=== PATIENT | male | born 1965 | race Caucasian/White ===

== ENCOUNTER 2017-08-31 14:28 | Outpatient (CLI) | payer OTHER ==
--- NOTE | 2017-08-31 15:40 | MRI ---
LUMBAR SPINE MRI NONCONTRAST: COMPARISON: 04/23/12. INDICATION: Lumbar radiculopathy. FINDINGS: Multilevel degenerative signal alteration is present which is most pronounced at L4-5, compatible wit h Modic type II degenerative signal alteration. Conus medullaris terminates at the L2 level. L5-S1: There is a broad-based left asymmetric disk-osteophyte complex with mild effacement of the ve ntral thecal sac. There is moderate left foraminal stenosis. No high-grade right foraminal compromi se. Mild bilateral degenerative facet hypertrophy is seen. L4-5: There is mild central canal stenosis as a result of broad-based disk-osteophyte complex. Ther e is mild to moderate bilateral neural foraminal stenosis. L3-4: Mild narrowing of the central canal as a result of broad-based disk-osteophyte complex. No hi gh-grade foraminal stenosis. L2-3: Mild narrowing of the central canal as a result of concentric disk bulge. No obvious foramina l stenosis. L1-2: Mild effacement of the ventral thecal sac by disk-osteophyte. No significant foraminal stenos is. IMPRESSION: 1. Multilevel degenerative change of the lumbar spine, as outlined above. 2. There are multilevel areas of signal alteration compatible with Modic type II signal alteration. POS: JENNIFER
== END 2017-08-31 14:29 | disposition home or self-care (01) ==
LOC: TBSIIMAG 14:28
PROVIDERS: ATTEND Nurse Practitioner Family
DX: M47.26 Other spondylosis with radiculopathy, lumbar region (principal)
CPT/HCPCS: 72148

== ENCOUNTER 2017-12-20 14:36 | Outpatient (CLI) | payer OTHER ==
--- NOTE | 2017-12-20 15:21 | RAD ---
CERVICAL SPINE SERIES 5 VIEWS INCLUDING FLEXION AND EXTENSION: Date: 12/20/17 HISTORY: Neck pain. FINDINGS: The vertebral bodies are normal in height. There are degenerative osteophytes present. There is minim al disc narrowing at C4-5 and C5-6 levels. Facets are in normal alignment. No abnormal motion is seen in flexion or extension. IMPRESSION: Arthritic change of the spine. POS: JENNIFER
--- NOTE | 2017-12-20 15:21 | RAD ---
LUMBAR SPINE SERIES 4 VIEWS INCLUDING FLEXION AND EXTENSION: HISTORY: Back pain with pain radiating down left leg. FINDINGS: The vertebral bodies are normal in height. There are degenerative osteophytes along the course of th e spine. Disk narrowing is most pronounced at L4-5. Degenerative facet changes are noted. Pedicles are intact. IMPRESSION: Moderate arthritic change of the spine. No evidence of any spondylolisthesis. POS: JENNIFER
--- NOTE | 2017-12-20 16:00 | MRI ---
MRI OF THE CERVICAL SPINE WITHOUT CONTRAST: INDICATION: History of upper back pain between the shoulder blades. COMPARISON: Cervical spine radiographs dated 12/20/17. FINDINGS: The visualized aspects of the posterior fossa appear within normal limits. At the C2-C3 level, there is moderate left and mild right facet joint degenerative change. There is uncovertebral hypertrophy . There is mild narrowing of the left neural foramen without definite impingement. At C3-4, there is mild to moderate facet joint degenerative change. There is mild uncovertebral hype rtrophy greater on the left causing mild left neural foraminal narrowing. At C4-5, there is a broad-based disk bulge inducing mild effacement of the ventral subarachnoid space . There is uncovertebral hypertrophy and facet joint degenerative change inducing moderate left and mild to moderate right neural foraminal narrowing. At C5-6, there is an asymmetric to the right disk bulge with uncovertebral hypertrophy and facet join t degenerative change inducing severe right neural foraminal narrowing and mild to moderate left neur al foraminal narrowing. There is a broad-based disk bulge at this level that induces mild central ca nal narrowing. At C6-7, there is uncovertebral hypertrophy and a b disk bulge inducing mild bilateral neural foramin al narrowing. At C7-T1, there is no appreciable central canal or neural foraminal narrowing. IMPRESSION: 1. Mild central canal narrowing at C5-6 with severe right and mild to modera left neural foraminal n arrowing due to an asymmetric to the right disk bulge, uncovertebral hypertrophy, and facet joint deg enerative change. 2. Mild central canal narrowing at C4-5 with uncovertebral hypertrophy and facet joint degenerative change inducing moderate left and mild to moderate right neural foraminal narrowing. POS: JENNIFER
--- NOTE | 2017-12-20 16:42 | MRI ---
MRI THORACIC SPINE WITHOUT CONTRAST: 12/20/17 HISTORY: M54.6 - back pain, thoracic. COMPARISON: None. FINDINGS: The contour of the aorta is normal. No hydronephrosis. The paraspinal musculature is normal. There are type II Modic changes of the anterior, superior and anterior inferior end plates throughout the thoracic spine. There is a focal area of degenerative disc space height loss at T8-T9 with right lateral recess and s ubforaminal posterior disc protrusion effacing the ventral CSF space. There is a central syrinx cente red at the T8-T9 level for a craniocaudad length of 5 cm with maximum AP dimension of 3 mm. No significant neural foraminal narrowing throughout the thoracic spine. IMPRESSION: 1. Central syrinx of the thoracic cord centered at the level of the T8-T9 disc measuring in the AP dimension of up to 3 mm and craniocaudad length of up to 5 cm. Brain MRI may be beneficial in this patient. 2. Focal single area of degenerative disc space disease with right paracentral, lateral recess, and subforaminal posterior disc osteophyte complex causing some mild effacement of the ventral CSF sp hamida. 3. Multilevel Modic type II end plate changes throughout the spine. POS: OSEI
== END 2017-12-20 14:37 | disposition home or self-care (01) ==
LOC: TBSIIMAG 14:36
PROVIDERS: ATTEND Physician Assistant Surgical
DX: M46.92 Unspecified inflammatory spondylopathy, cervical region (principal); M51.34 Other intervertebral disc degeneration, thoracic region; M47.892 Other spondylosis, cervical region; M48.061 Spinal stenosis, lumbar region without neurogenic claudication; M46.96 Unspecified inflammatory spondylopathy, lumbar region; M54.16 Radiculopathy, lumbar region; M99.81 Other biomechanical lesions of cervical region; M25.78 Osteophyte, vertebrae
CPT/HCPCS: 72050; 72110; 72141; 72146

== ENCOUNTER 2018-03-19 07:48 | Day surgery (SDC) | payer OTHER ==
[2018-03-19] MEDS ORDERED: Clindamycin/D5W 900 mg/50 ml Premix Bag ONE (08:12)
[2018-03-19] MEDS ORDERED: Levofloxacin 500 mg/D5W 100 ml Premix Bag ONE (08:13)
[2018-03-19] MEDS ORDERED: Gelfilm 1 EA Packet ONE (09:22)
[2018-03-19] MEDS ORDERED: Thrombin 5000 UNITS/5 ML VIAL ONE (09:23)
[2018-03-19] MEDS ORDERED: Bacitracin Zinc Ointment 30 gm TUBE ONE (09:23)
[2018-03-19] MEDS ORDERED: Midazolam HCl 2 mg/2 ml Vial ONE (09:41)
[2018-03-19] MEDS ORDERED: Fentanyl 100 MCG/2 ML VIAL ONE ×4 (09:41→12:53)
[2018-03-19] MEDS ORDERED: Sodium Chloride 0.9% 10 ML ONE (10:30)
[2018-03-19] MEDS ORDERED: Promethazine HCl 25 MG/ML VIAL SLOW IVP PRN (11:17)
[2018-03-19] MEDS ORDERED: Promethazine HCl 25 MG/ML VIAL IM PRN ×2 (11:17→12:21)
[2018-03-19] MEDS ORDERED: Ondansetron HCl/PF 4 MG/2 ML Vial IVP PRN (11:17)
[2018-03-19] MEDS ORDERED: Milk Of Magnesia 30 ML UDCUP PO PRN (12:21)
[2018-03-19] MEDS ORDERED: tiZANidine HCl 4 MG TAB PO PRN (12:21)
[2018-03-19] MEDS ORDERED: traMADol HCl 50 MG TAB PO PRN (12:21)
[2018-03-19] MEDS ORDERED: Fleet Enema 133 ML BOT PR PRN (12:21)
[2018-03-19] MEDS ORDERED: Acetaminophen/Codeine 30-300mg Tablet PO PRN (12:21)
[2018-03-19] MEDS ORDERED: Bisacodyl 10 MG SUPP PR PRN (12:21)
[2018-03-19] MEDS ORDERED: Acetaminophen 325 MG TAB PO PRN (12:21)
[2018-03-19] MEDS ORDERED: Mag-Al 1200 mg/1200 mg/30 ML UDCUP PO PRN (12:21)
[2018-03-19] MEDS ORDERED: Ketorolac Tromethamine 30 MG/ML VIAL ONE (12:31)
--- NOTE | 2018-03-19 12:52 | OP ---
OR: 9. WOUND TYPE: Type 1 wound. SURGEON: Jeff Rodas M.D. [employer] ARCHITECT: Oracio Gomez PA-C. PREPROCEDURE DIAGNOSES: Low back and left greater than right lower extremity pain with L4-L5 stenosi s and left L5 foraminal stenosis with lateral disk extrusion. PROCEDURES: 1. L4-L5 laminectomy, partial facetectomy, foraminotomies over the L4-L5 nerve roots. 2. Left L5-S1 transfacet approach for decompression of the exiting left L5 nerve root and removal of lateral and far lateral disk. 3. Use of operative microscope for microdissection. DESCRIPTION OF PROCEDURE: After informed consent was obtained from the patient, the patient brought to OR 9. Proper patient pause and identification was carried out. He was placed in excellent genera l endotracheal anesthesia and positioned prone on the OR table. All appropriate points were padded. We identified the L4-L5 and L5-S1 segments. This region was sterilely cleansed, prepared, and drape d. Proper patient pause and identification was carried out. The wound was then opened with a combin ation of sharp, monopolar, and blunt dissection. We exposed the L4-L5 segments bilaterally and the l eft L5-S1 segment, even out into the facet complex to facilitate the left L5-S1 transfacet approach. We then performed localization film, confirmed our area of interest and performed an L4-L5 laminecto my, partial facetectomy and foraminotomies. We then brought the microscope in and working across the left L5-S1 facet. We did a transfacet approach for lateral foraminal and far lateral disk removal f or maximal decompression throughout the course of the left L5 nerve root. We identified disk materia l. This was removed. There was also osteophytic spurring laterally in the foramen, and we removed t his as well. We assured freedom throughout the course of the left L5 nerve root, as it exited extra foraminally. Copious irrigation occurred throughout. Hemostasis was maximized throughout. The woun d was then closed in anatomic layers following the sprinkling of vancomycin powder and irrigation. T he patient then emerged from anesthesia.
[2018-03-19 13:00] VITALS: BMI 27.1
[2018-03-19] MEDS: HYDROcodone/Acetaminophen 7.5/325 mg Tablet PO PRN ×2 (14:19→20:11)
[2018-03-19] MEDS: Clindamycin/D5W 900 MG in Premix Bag 1 BAG IVPB SCH ×2 (14:20→21:44)
[2018-03-19] MEDS: Sodium Chloride 0.9% 1,000 ML IV SCH ×2 (17:37→23:32)
[2018-03-19] MEDS ORDERED: Temazepam 15 MG CAP PO SCH (21:00)
[2018-03-20] MEDS: HYDROcodone/Acetaminophen 7.5/325 mg Tablet PO PRN ×3 (01:46→09:50)
[2018-03-20 07:46] VITALS: BP 104/69; TEMP 98
--- NOTE | 2018-03-20 14:00 | DIS ---
DATE OF ADMISSION: 03/19/2018 DATE OF DISCHARGE: 03/20/2018 DISCHARGE DIAGNOSES: 1. Lumbar radiculopathy. 2. Lumbar spinal stenosis. 3. Rheumatoid arthritis. HOSPITAL COURSE: On 03/19/2018 Mr. Sorensen was admitted to undergo L4-L5 laminectomy with left L5-S1 d iskectomy. The patient's surgery was without complication and he recovered for 1 overnight stay on [facility] surgical [facility]. At the time of discharge, he had complete resolution of his bilateral lower extrem ity symptoms, but did have some incisional back pain. He has good strength in the bilateral lower ex tremities. He met criteria for discharge. Appropriate patient education and outpatient followups we re provided. We did let him know that he should hold on his RA medications, hopefully for the next 6 weeks, but definitely until his next wound check Both he and his family stated their understandin g and understood to call the office with questions or concerns prior to his next followup appointment . Again, at the time of discharge, the patient and his family were pleased with his outcome.
== END 2018-03-20 10:25 | disposition home or self-care (01) ==
LOC: SDC 07:48 → SURG B 12:58 → SDC 03-20 10:25
PROVIDERS: ATTEND Surgery
PROC: 01NB0ZZ Release Lumbar Nerve, Open Approach (ICD-10-PCS; principal; 2018-03-20)
PROC: 0ST40ZZ Resection of Lumbosacral Disc, Open Approach (ICD-10-PCS; principal; 2018-03-20)
DX: M48.061 Spinal stenosis, lumbar region without neurogenic claudication (principal); M51.16 Intervertebral disc disorders with radiculopathy, lumbar region; M06.9 Rheumatoid arthritis, unspecified; Z79.899 Other long term (current) drug therapy; Z88.0 Allergy status to penicillin
CPT/HCPCS: 76001; 96374; 96375; 96376; A4216; J1885; J1956; J2250; J3010; J3370; J3490

== ENCOUNTER 2021-06-29 09:23 | Outpatient (CLI) | payer OTHER | END 2021-06-29 09:24 | disposition home or self-care (01) | LOC: MRI 09:23 | PROVIDERS: ATTEND Surgery | DX: M47.26 Other spondylosis with radiculopathy, lumbar region (principal); M54.30 Sciatica, unspecified side; Z98.890 Other specified postprocedural states | CPT/HCPCS: 72120; 72148 ==

== ENCOUNTER 2024-01-21 08:26 | Outpatient (CLI) | payer BC | END 2024-01-21 08:27 | disposition home or self-care (01) | LOC: BICRAD 08:26 | PROVIDERS: ATTEND Internal Medicine Rheumatology | DX: M54.50 Low back pain, unspecified (principal); M46.1 Sacroiliitis, not elsewhere classified; M45.0 Ankylosing spondylitis of multiple sites in spine; M47.816 Spondylosis without myelopathy or radiculopathy, lumbar region; G95.89 Other specified diseases of spinal cord | CPT/HCPCS: 72100; 72202 ==